=== PATIENT | female | born 1985 | race American Indian/Alaskan Native ===

== ENCOUNTER 2017-05-02 10:31 | Emergency (ER) | payer MEDICAID ==
[2017-05-02 10:50] VITALS: BP 136/96
--- NOTE | 2017-05-02 12:29 | XRay Report ---
RIGHT KNEE, 2 views: History: Right knee pain. The bony architecture is intact without evidence of fracture or dislocation. No significant soft tissue abnormality is seen. IMPRESSION: Normal right knee.
[2017-05-02] MEDS ORDERED: TORADOL IM ONE (13:08)
--- NOTE | 2017-05-02 15:23 | Emergency Department Report ---
Entered by PURNIMA DAVID, acting as scribe for JUAN DANIEL KINGSLEY NP. ED Extremity Problem HPI - General Chief complaint: Extremity Injury, Lower Stated complaint: BACK PAIN Time Seen by Provider: 05/02/17 12:44 Source: patient Mode of arrival: Ambulatory Limitations: No Limitations - History of Present Illness Initial comments: This is a 32 y/o female patient well-nourished with nontoxic or ill in appearance with a history of herniated discs, presents to the ED for evaluation of 2 days hx of sharp right knee pain. Pt states while trying to grab her daughter from falling, she loss her balance, subsequently falling down the 2 stairs. Since the fall she notes a tingling sensation and pain to the lower back and left knee. Additionally she reports shooting pain and tingling that radiates from the back to the right lower extremity. Applying ice does not improve the pain. She has taken Advil and Tylenol since the injury. She denies anti coagulant therapy. She does not taking any medications OTC. Pt was able to ambulate to the ED. Previously she did receive treatment for herniated disc where she underwent steroidal injections. Patient denies history of renal complications. Patient denies any head trauma, CP, SOB, calf pain, joint swelling, joint redness, fever, chills,. stiff neck, numbness, n/v. Denies long car rides, recent travels, or surgeries. Denies taking any control pills. Patient describes pain as aching with level of 10/10. Allergies to PCN and Latex. Denies PMH. MD Complaint: extremity pain Onset/Timin -: Gradual, days(s) Location: right, knee History of Same: No -: No myalgia, No fever, No associated dyspnea, No associated chest pain Radiation: none Severity scale (0 -10): 5 Quality: aching Consistency: constant Improves with: nothing Worsens with: weight bearing Associated Symptoms: denies other symptoms. denies: chest pain, shortness of breath, fever, myalgias, arthralgias, rash - Related Data Previous Rx's Medication Instructions Recorded Last Taken Type oxyCODONE /ACETAMINOPHEN [Percocet 1 tab PO Q6HR PRN #10 tablet 02/07/16 Unknown Rx ] Ibuprofen [Motrin 600 MG tab] 600 mg PO Q8H PRN #20 tablet 05/02/17 Unknown Rx predniSONE [Deltasone] 20 mg PO BID #10 tab 05/02/17 Unknown Rx Allergies Allergy/AdvReac Type Severity Reaction Status Date / Time latex Allergy Hives Verified 05/02/17 10:45 Penicillins Allergy Anaphylaxis Verified 05/02/17 10:45 ED Review of Systems Comment: All other systems reviewed and negative Constitutional: no symptoms reported. denies: chills, fever Eyes: denies: eye pain, eye discharge, vision change ENT: denies: ear pain, throat pain Respiratory: denies: cough, shortness of breath Cardiovascular: denies: chest pain Endocrine: no symptoms reported Gastrointestinal: denies: abdominal pain, nausea, vomiting Genitourinary: denies: urgency, dysuria, discharge Musculoskeletal: back pain, arthralgia, other (right knee pain). denies: joint swelling Skin: denies: rash Neurological: denies: headache Psychiatric: denies: anxiety, depression Hematological/Lymphatic: denies: easy bleeding, easy bruising ED Past Medical Hx - Past Medical History Hx Hypertension: No Hx Diabetes: No Hx Deep Vein Thrombosis: No Hx Renal Disease: No Hx Sickle Cell Disease: No Hx Seizures: No Hx Psychiatric Treatment: (Bipolar) Hx Asthma: Yes Hx HIV: No - Surgical History Additional Surgical History: fibriodectomy - Social History Smoking Status: Current Every Day Smoker Substance Use Type: None - Medications Home Medications: Home Medications Medication Instructions Recorded Confirmed Last Taken Type oxyCODONE /ACETAMINOPHEN [Percocet 1 tab PO Q6HR PRN #10 tablet 02/07/16 Unknown Rx 5/325] Ibuprofen [Motrin 600 MG tab] 600 mg PO Q8H PRN #20 tablet 05/02/17 Unknown Rx predniSONE [Deltasone] 20 mg PO BID #10 tab 05/02/17 Unknown Rx ED Physical Exam - General Limitations: No Limitations General appearance: alert, in no apparent distress - Head Head exam: Present: atraumatic, normocephalic, normal inspection - Eye Eye exam: Present: normal appearance, PERRL, EOMI. Absent: scleral icterus, conjunctival injection, nystagmus, periorbital swelling, periorbital tenderness Pupils: Present: normal accommodation - ENT ENT exam: Present: normal exam, normal orophraynx, mucous membranes moist, TM's normal bilaterally, normal external ear exam - Neck Neck exam: Present: normal inspection, full ROM. Absent: tenderness, meningismus, lymphadenopathy, thyromegaly - Respiratory Respiratory exam: Present: normal lung sounds bilaterally. Absent: respiratory distress, wheezes, rales, rhonchi, stridor, chest wall tenderness, accessory muscle use, decreased breath sounds, prolonged expiratory - Cardiovascular Cardiovascular Exam: Present: regular rate, normal rhythm, normal heart sounds. Absent: bradycardia, tachycardia, irregular rhythm - GI/Abdominal GI/Abdominal exam: Present: soft, normal bowel sounds. Absent: tenderness - Extremities Exam Extremities exam: Present: normal inspection, full ROM, normal capillary refill. Absent: tenderness, pedal edema, joint swelling, calf tenderness - Expanded Lower Extremity Exam Right Hip exam: Present: normal inspection, full ROM, pelvic stability. Absent: tenderness, swelling, abrasion, laceration, ecchymosis, deformity, crepidus, dislocation, erythema, external rotation, internal rotation, shortening Upper Leg exam: Present: normal inspection, full ROM. Absent: tenderness, swelling, abrasion, laceration, ecchymosis, deformity, crepidus, dislocation, erythema Knee exam: Present: normal inspection, full ROM, full knee extension. Absent: tenderness, swelling, abrasion, laceration, ecchymosis, deformity, crepidus, dislocation, erythema, effusion, pain w/ pronation/supination, posterior draw sign, pain/laxity with valgus, pain/laxity with varus Lower Leg exam: Present: normal inspection, full ROM. Absent: tenderness, swelling, abrasion, laceration, ecchymosis, deformity, crepidus, dislocation, erythema, palpable cord, Collin's sign Ankle exam: Present: normal inspection, full ROM. Absent: tenderness, swelling , abrasion, laceration, ecchymosis, deformity, crepidus, dislocation, erythema, anterior draw sign Foot/Toe exam: Present: normal inspection, full ROM. Absent: tenderness, swelling, abrasion, laceration, ecchymosis, deformity, crepidus, dislocation, erythema, amputation, puncture wound, foreign body, calcaneal tenderness, tenderness at base of 5th metatarsal, nail avulsion, subungual hematoma Neuro vascular tendon exam: Present: no vascular compromise. Absent: pulse deficit, abnormal cap refill, motor deficit, sensory deficit, tendon deficit, extremity cold to touch, pallor, abnormal 2-point discrimination, decreased fine /light touch, foot drop, peroneal nerve deficit, significant pain with passive ROM of distal joint Gait: Positive: observed and limited by pain - Back Exam Back exam: Present: normal inspection, full ROM, paraspinal tenderness (lumbar paraspinal region). Absent: tenderness, CVA tenderness (R), CVA tenderness (L) , muscle spasm, vertebral tenderness, rash noted - Neurological Exam Neurological exam: Present: alert, oriented X3, CN II-XII intact, normal gait, reflexes normal - Psychiatric Psychiatric exam: Present: normal affect, normal mood - Skin Skin exam: Present: warm, dry, intact, normal color ED Course Vital Signs 05/02/17 10:45 Temperature 98.1 F Pulse Rate 88 Respiratory 18 Rate Blood Pressure 136/96 O2 Sat by Pulse 100 Oximetry - Reevaluation(s) Reevaluation #1: 05/02/17 13:42 Patient is able to speak in full sentences with no signs of distress noted. ED Medical Decision Making - Medical Decision Making Ed course: This is a 32-year-old female that presents to ED with right knee strain and low back strain 1- patient was examined by myself. Xray has been obtained with normal findings. Dictated by radiologist. Patient was informed of xray findings with no further questions noted by the patient. 2- Patient received knee immobilizer and crutches was educated by the nurse. 3- Patient received solu-medoral and toradol in the ed. 4- Pt d/c with ibuprofen and prednisone. 5- patient was instructed to follow up with Dr. Caal or another orthopedic doctor in 3-5 days or symptoms worsen and continue such as numbness, tingling, joint swelling, joint redness, fever, chills, chest pain or shortness of breath return to emergency room as soon as possible. 6- at time time of discharge, the patient does not seem toxic or ill in appearance. No acute signs of distress noted. Patient agrees to discharge treatment plan of care. No further questions noted by the patient. 7- patient was also instructed to Rice therapy ED Disposition Clinical Impression: Strain of right knee Qualifiers: Encounter type: initial encounter Qualified Code(s): S86.911A - Strain of unspecified muscle(s) and tendon(s) at lower leg level, right leg, initial encounter Low back strain Qualifiers: Encounter type: initial encounter Qualified Code(s): S39.012A - Strain of muscle, fascia and tendon of lower back, initial encounter Disposition: DC- TO HOME OR SELFCARE Is pt being admited?: No Does the pt Need Aspirin: No Condition: Stable Instructions: Low Back Strain (ED), Knee Pain (ED), RICE Therapy (ED), Ibuprofen (By mouth), Prednisone (By mouth), Knee Immobilizer (ED), Crutch Instructions (ED) Additional Instructions: follow up with Dr. Caal or another orthopedic doctor in 3-5 days or symptoms worsen and continue such as numbness, tingling, joint swelling, joint redness, fever, chills, chest pain or shortness of breath return to emergency room as soon as possible. Take ibuprofen and prednisone as prescribed. Prescriptions: Ibuprofen [Motrin 600 MG tab] 600 mg PO Q8H PRN #20 tablet PRN Reason: Pain predniSONE [Deltasone] 20 mg PO BID #10 tab Referrals: PRIMARY CARE, [Primary Care Provider] - 3-5 Days SOLEDAD CAAL MD [Staff Physician] - 3-5 Days [facility] [Outside] - 3-[address] [facility] [Outside] - 3-5 Days Forms: Work/School Release Form(ED) This documentation as recorded by the JOANN oakley SHALANE,accurately reflects the service I personally performed and the decisions made by ,JUAN DANIEL KINGSLEY, [employer].
== END 2017-05-02 14:23 | disposition home or self-care (01) ==
LOC: ED 10:31
DX: S76.911A Strain of unspecified muscles, fascia and tendons at thigh level, right thigh, initial encounter (principal); F31.9 Bipolar disorder, unspecified; F17.210 Nicotine dependence, cigarettes, uncomplicated; Z88.0 Allergy status to penicillin; Z91.040 Latex allergy status; W10.9XXA Fall (on) (from) unspecified stairs and steps, initial encounter; Y93.89 Activity, other specified; Y92.89 Other specified places as the place of occurrence of the external cause; Y99.8 Other external cause status
CPT/HCPCS: 29505; 73560; 81025; 96372; 99284; J1885; J2920

== ENCOUNTER 2018-02-16 21:41 | Outpatient (CLI) | payer MEDICAID ==
[2018-02-16] MEDS ORDERED: LACTATED RINGERS 500 ML IV ONE (21:55)
[2018-02-16] MEDS ORDERED: BRETHINE ONE (22:03)
[2018-02-16] MEDS ORDERED: BRETHINE SUB-Q ONE (22:05)
[2018-02-16 22:34] VITALS: BP 104/62
--- NOTE | 2018-02-16 22:42 | Event Note ---
Date: 02/16/18 patient arrived to triage via EMS @ approx 26 weeks with c/o urge to push and leaking fluid since this morning around 11. Patient states she is receiving care with Dr. Colunga and SONU. She reports being a [id number] (SAB x 12 <8 weeks, D& C x 1). Patient states she had a cerclage placed in November or December "to keep her in" and because "she was head down already and that worried them." Pt denies cervical shortening or labor. She has had 2 term vaginal deliveries in 2009 & 2016. Pt reports psych hx of anxiety/depression/bipolar since age 13. Sterile spec exam done - cerclage appears intact, white/yellow vaginal discharge noted. Nitrazine negative. SVE 0/30/-4, no presenting part noted in pelvis. no ctx noted on toco, abd palpated soft. u/s ordered for NANDINI/CL /presentation. Dr. Poe aware of patient's status.
[2018-02-16 23:15] LABS: Amphetamine Screen,Urine PRESUMPTIVE NEGATIVE; Benzodiazepines Screen,Urine PRESUMPTIVE NEGATIVE; Cannabinoid Screen,Urine PRESUMPTIVE NEGATIVE; Cocaine Screen,Urine PRESUMPTIVE NEGATIVE; Methadone Screen,Urine PRESUMPTIVE NEGATIVE; Opiate Screen,Urine PRESUMPTIVE NEGATIVE
--- NOTE | 2018-02-16 23:23 | Event Note ---
Date: 02/16/18 wet prep + BV, CL 5cm, NADNINI 19.5, grade zero placenta. Metronidazole sent to [facility] across the [address]. d/c home and pt is to f/u with her provider this week.
--- NOTE | 2018-02-17 01:12 | Ultrasound Report ---
FINAL REPORT EXAM: US OB > = 14 WEEKS FETUS HISTORY: well being/PTL COMPARISON: None of this . TECHNIQUE: Several real-time grayscale and color Doppler images were obtained. FINDINGS: Single live IUP. Estimated gestational age 26 weeks 1 day. Estimated delivery date May 24, 2018. heart rate 143 beats per minute. Estimated weight 947 grams. BPD 6.1 centimeters 24 weeks 6 days. Head circumference 24.0 centimeters 26 weeks 1 day. Abdominal circumference 22 centimeters 26 weeks 3 days. Femoral length 5.0 centimeters 27 weeks 0 days. Normal NANDINI 19.5 centimeters. position cephalic. Placenta location anterior. No placenta previa. Cervix is closed and measures 5 centimeters in length. Visualized portions of the heart, stomach, urinary bladder, cerebral ventricles, kidneys are grossly unremarkable. Three-vessel umbilical cord with abdominal insertion. There are 2 hypoechoic structures within the uterus concerning for fibroids. At the anterior margin the uterus there is a 7.5 x 5.5 x 6.4 centimeter lesion. There is a 2nd lesion measuring 4.6 x 3.5 x 4.6 centimeters. This appears partially calcified. IMPRESSION: Single live IUP. Estimated gestational age 26 weeks 1 day. Estimated delivery date May 24, 2018. No or placental abnormality demonstrated. Probable uterine fibroids.
[2018-02-17 07:06] LABS: Bacteria,Urine 1+ /HPF (Negative); Bilirubin,Urine NEG (Negative); Blood,Urine SM (Negative); Color,Urine Yellow (Yellow); Protein,Urine <15 mg/dL mg/dL (Negative); Urobilinogen,Urine < 2.0 mg/dL (<2.0)
== END 2018-02-16 23:30 | disposition home or self-care (01) ==
LOC: TRG 21:41 → LD 22:04 → TRG 23:30
PROVIDERS: ATTEND Obstetrics & Gynecology
DX: O42.92 Full-term premature rupture of membranes, unspecified as to length of time between rupture and onset of labor (principal); O26.893 Other specified pregnancy related conditions, third trimester; M54.9 Dorsalgia, unspecified; O99.342 Other mental disorders complicating pregnancy, second trimester; F41.8 Other specified anxiety disorders; O99.333 Smoking (tobacco) complicating pregnancy, third trimester; F17.200 Nicotine dependence, unspecified, uncomplicated; Z79.899 Other long term (current) drug therapy; Z3A.28 28 weeks gestation of pregnancy
CPT/HCPCS: 59025; 76805; 80307; 81001; 87210; J3105

== ENCOUNTER 2018-07-11 08:53 | Emergency (ER) | payer MEDICAID ==
[2018-07-11] MEDS ORDERED: TORADOL IM ONE (11:33)
[2018-07-11] MEDS ORDERED: DELTASONE PO ONE (11:33)
[2018-07-11 11:52] LABS: Basophils # (Auto) 0.1 K/mm3 (0.0-0.1); Eosinophils # (Auto) 0.1 K/mm3 (0.0-0.4); Eosinophils % (Auto) 1.9 % (0.0-4.3); Hemoglobin 12.1 gm/dl (10.1-14.3); Lymphocytes # (Auto) 2.5 K/mm3 (1.2-5.4); Mean Corpuscular HGB Conc 34 % (30-34); Mean Corpuscular Hemoglobin 29 pg (28-32); Mean Corpuscular Volume 85 fl (79-97); Monocytes # (Auto) 0.5 K/mm3 (0.0-0.8); Monocytes % (Auto) 7.7 % (0.0-7.3); Platelet Count 279 K/mm3 (140-440); Red Blood Count 4.25 M/mm3 (3.65-5.03); Red Cell Distribution Width 15.3 % (13.2-15.2)
[2018-07-11 12:02] LABS: INR 0.9 (0.87-1.13); Partial Thromboplastin Time 29.9 Sec. (24.2-36.6)
--- NOTE | 2018-07-11 12:07 | Emergency Department Report ---
ED Chest Pain HPI - General Chief Complaint: Chest Pain Stated Complaint: CHEST/BACK PAIN Time Seen by Provider: 07/11/18 11:30 Source: patient Mode of arrival: Ambulatory Limitations: No Limitations - History of Present Illness Initial Comments: This is a 33-year-old female nontoxic, well nourished in appearance, no acute signs of distress presents to the ED with c/o of lower/mid back pain x3 days and midsternum chest pain x2 weeks. Patient denies any radiation of pain. P atient stated that the past 3 days he was moving and developed this pain. Patient describes pain as aching intermittently. Patient also stated has productive cough and some shortness of breathe during cough. Patient stated otherwise denies any shrotness of breathe. Patient currently denies any shortness of breath, hemoptysis, fever, chills, nausea, vomiting, headache, stiff neck, numbness, tingling, abdominal pain. Patient denies pleuritic chest pain. Denies any bladder or bowel instability. Patient denies any urinary symptoms. Patient denies any recent travels or long car rides. Patient denies any recent surgeries or any sick contacts. Patient stated allergies to Latex and PCN. Past medical history includes asthma. MD Complaint: chest pain, other (back pain) -: days(s) (3), week(s) (2) Pain Location: other (midsternal) Pain Radiation: none Severity: mild Severity scale (0 -10): 3 Quality: aching Consistency: intermittent Improves With: nothing Worsens With: palpation, movement re: denies: nausea, vomting, diaphoresis, dyspnea, sense of impending doom Other Symptoms: cough. denies: fever, syncope, rash, acid taste in mouth, leg swelling, palpitations, burping Treatments Prior to Arrival: none Aspirin use within the Past 7 Days: (0) No - Related Data On Oral Contraceptives: No Home Medications Medication Instructions Recorded Confirmed Last Taken Vitamin 1 tab PO DAILY 02/16/18 02/16/18 02/16/18 10:00 1 tab Previous Rx's Medication Instructions Recorded Last Taken Type metroNIDAZOLE [Metronidazole] 500 mg PO BID #14 tablet 02/16/18 Unknown Rx Azithromycin [Zithromax Z-JUAN] 250 mg PO DAILY #6 tablet 07/11/18 Unknown Rx Cyclobenzaprine [Flexeril] 10 mg PO QHS PRN #10 tablet 07/11/18 Unknown Rx Ibuprofen [Motrin] 600 mg PO Q8H PRN #30 tablet 07/11/18 Unknown Rx Prednisone [predniSONE 10 mg 10 mg PO .TAPER #1 tab.ds.pk 07/11/18 Unknown Rx (6-Day Pack, 21 Tabs)] Allergies Allergy/AdvReac Type Severity Reaction Status Date / Time latex Allergy Hives Verified 05/02/17 10:45 Penicillins Allergy Anaphylaxis Verified 05/02/17 10:45 Heart Score - HEART Score History: Slightly suspicious EKG: Normal Age: < 45 Risk factors: No known risk factors Troponin: < normal limit HEART Score: 0 ED Review of Systems ROS: Stated complaint: CHEST/BACK PAIN Other details as noted in HPI Constitutional: denies: chills, fever Eyes: denies: eye pain, eye discharge, vision change ENT: denies: ear pain, throat pain Respiratory: cough, shortness of breath. denies: wheezing Cardiovascular: chest pain. denies: palpitations Endocrine: no symptoms reported Gastrointestinal: denies: abdominal pain, nausea, diarrhea Genitourinary: denies: urgency, dysuria, discharge Musculoskeletal: denies: back pain, joint swelling, arthralgia Skin: denies: rash, lesions Neurological: denies: headache, weakness, paresthesias Psychiatric: denies: anxiety, depression Hematological/Lymphatic: denies: easy bleeding, easy bruising ED Past Medical Hx - Past Medical History Previous Medical History?: Yes Hx Hypertension: No Hx Diabetes: No Hx Deep Vein Thrombosis: No Hx Renal Disease: No Hx Sickle Cell Disease: No Hx Seizures: No Hx Psychiatric Treatment: (Bipolar) Hx Asthma: Yes (january 18 last flare up) Hx HIV: No - Surgical History Past Surgical History?: Yes Additional Surgical History: fibriodectomy. oral surgery - Social History Smoking Status: Current Every Day Smoker Substance Use Type: None - Medications Home Medications: Home Medications Medication Instructions Recorded Confirmed Last Taken Type Vitamin 1 tab PO DAILY 02/16/18 02/16/18 02/16/18 10:00 History 1 tab metroNIDAZOLE [Metronidazole] 500 mg PO BID #14 tablet 02/16/18 Unknown Rx Azithromycin [Zithromax Z-JUAN] 250 mg PO DAILY #6 tablet 07/11/18 Unknown Rx Cyclobenzaprine [Flexeril] 10 mg PO QHS PRN #10 tablet 07/11/18 Unknown Rx Ibuprofen [Motrin] 600 mg PO Q8H PRN #30 tablet 07/11/18 Unknown Rx Prednisone [predniSONE 10 mg 10 mg PO .TAPER #1 tab.ds.pk 07/11/18 Unknown Rx (6-Day Pack, 21 Tabs)] ED Physical Exam - General Limitations: No Limitations General appearance: alert, in no apparent distress - Head Head exam: Present: atraumatic, normocephalic - Eye Eye exam: Present: normal appearance Pupils: Present: normal accommodation - ENT ENT exam: Present: normal exam, mucous membranes moist - Neck Neck exam: Present: normal inspection, full ROM. Absent: tenderness, meningismus, lymphadenopathy - Respiratory Respiratory exam: Present: normal lung sounds bilaterally, chest wall tenderness (midsternum). Absent: respiratory distress, wheezes, rales, rhonchi , stridor, accessory muscle use, decreased breath sounds, prolonged expiratory - Cardiovascular Cardiovascular Exam: Present: regular rate, normal rhythm, normal heart sounds. Absent: bradycardia, tachycardia, irregular rhythm, systolic murmur, diastolic murmur, rubs, gallop - GI/Abdominal GI/Abdominal exam: Present: soft, normal bowel sounds. Absent: distended, tenderness, guarding, rebound, rigid, diminished bowel sounds - Extremities Exam Extremities exam: Present: normal inspection, full ROM, normal capillary refill. Absent: tenderness - Back Exam Back exam: Present: normal inspection, full ROM, paraspinal tenderness (lumbar paraspinal). Absent: tenderness, CVA tenderness (R), CVA tenderness (L), muscle spasm, vertebral tenderness, rash noted - Neurological Exam Neurological exam: Present: alert, oriented X3, normal gait - Psychiatric Psychiatric exam: Present: normal affect, normal mood - Skin Skin exam: Present: warm, dry, intact, normal color. Absent: rash ED Course Vital Signs 07/11/18 07/11/18 09:22 13:50 Temperature 98.5 F Pulse Rate 85 88 Respiratory 18 16 Rate Blood Pressure 122/88 Blood Pressure 135/91 [Left] O2 Sat by Pulse 98 99 Oximetry - Reevaluation(s) Reevaluation #1: 07/11/18 12:11 Patient is speaking full sentences with no signs of distress. TULIO score - Tulio Score Age > 65: (0) No Aspirin use within the Past 7 Days: (0) No 3 or more CAD Risk Factors: (0) No 2 or more Angina events in past 24 hrs: (0) No Known CAD with more than 50% Stenosis: (0) No Elevated Cardiac Markers: (0) No ST Deviation Greater than 0.5mm: (0) No TULIO Score: 0 ED Medical Decision Making - Lab Data Result diagrams: 07/11/18 11:35 07/11/18 11:35 - Medical Decision Making This is a 33-year-old female that presents with costochondritis, low back strain and bronchitis. Patient is stable and was examined by me. TULIO and HEART score 0 pints. Wells criteria for DVT/SVT/PE 0 points. Negative d-dimmer. Chest xray dictated by the radiologist. PAtient is notified of the Xray report with no questions noted. Labs within normal limits. Negative troponin. Patient received Toradol 30 mg IM and Prednisone in the ED which she stated his symptoms are improving subsided. Due to patient having symptoms of upper respiratory infection and worsening I will treat patient empirically with zpak and prednisone. I will discharge patient with Flexeril as well. Patient was instructed to Follow-up with a primary care/fittings finisher doctor in 3-5 days or if symptoms worsen and continue return to emergency room as soon as possible. At time of discharge, the patient does not seem toxic or ill in appearance. No acute signs of distress noted. Patient agrees to discharge treatment plan of care. No further questions noted by the patient. Critical care attestation.: If time is entered above; I have spent that time in minutes in the direct care of this critically ill patient, excluding procedure time. ED Disposition Clinical Impression: Costochondritis, Bronchitis Low back strain Qualifiers: Encounter type: initial encounter Qualified Code(s): S39.012A - Strain of muscle, fascia and tendon of lower back, initial encounter Disposition: TO HOME OR SELFCARE Is pt being admited?: No Does the pt Need Aspirin: No Condition: Stable Instructions: Muscle Strain (ED), Acute Bronchitis (ED), Costochondritis (ED), Cyclobenzaprine (By mouth) Additional Instructions: Follow-up with a primary care/fittings finisher doctor in 3-5 days or if symptoms worsen and continue return to emergency room as soon as possible. Take ibuprofen and Flexeril as prescribed. Do not operate heavy machinery while taking Flexeril due to sedation Prescriptions: Cyclobenzaprine [Flexeril] 10 mg PO QHS PRN #10 tablet PRN Reason: Muscle Spasm Azithromycin [Zithromax Z-JUAN] 250 mg PO DAILY #6 tablet Ibuprofen [Motrin] 600 mg PO Q8H PRN #30 tablet PRN Reason: Pain Prednisone [predniSONE 10 mg (6-Day Pack, 21 Tabs)] 10 mg PO .TAPER #1 tab.ds.pk Referrals: PRIMARY CARE, [Primary Care Provider] - 3-5 Days DOM ROBLEDO MD [Staff Physician] - 3-5 Days [facility] [Outside] - 3-5 Days [facility] [Outside] - 3-5 Days Forms: Work/School Release Form(ED)
[2018-07-11 12:10] LABS: Alanine Aminotransferase 10 units/L (7-56); Albumin 4.1 g/dL (3.9-5); BUN/Creatinine Ratio 16; Blood Urea Nitrogen 11 mg/dL (7-17); Calcium 9.6 mg/dL (8.4-10.2); Hemolysis Index 14
[2018-07-11 12:12] LABS: Creatine Kinase MB < 1.0 ng/mL (0.0-4.0)
[2018-07-11 13:51] VITALS: BP 135/91
--- NOTE | 2018-07-11 13:53 | XRay Report ---
ROUTINE CHEST, TWO VIEWS: HISTORY: chest pain. The trachea, heart, mediastinal contour, lung simmons and bony thorax are unremarkable. IMPRESSION: Unremarkable chest x-ray.
== END 2018-07-11 14:19 | disposition home or self-care (01) ==
LOC: ED 08:53
DX: S39.012A Strain of muscle, fascia and tendon of lower back, initial encounter (principal); M94.0 Chondrocostal junction syndrome [Tietze]; J40 Bronchitis, not specified as acute or chronic; F31.9 Bipolar disorder, unspecified; F17.200 Nicotine dependence, unspecified, uncomplicated; Z91.040 Latex allergy status; Z88.0 Allergy status to penicillin; X58.XXXA Exposure to other specified factors, initial encounter; Y93.89 Activity, other specified; Y92.89 Other specified places as the place of occurrence of the external cause; Y99.8 Other external cause status
CPT/HCPCS: 36415; 71046; 80053; 82550; 82553; 85025; 85379; 85610; 85730; 93005; 93010; 96372; 99284; J1885; J7512